=== PATIENT | female | born 1980 | race Caucasian/White ===

== ENCOUNTER 2016-07-03 16:32 | Emergency (ER) | payer OTHER, MEDICAID, SELFPAY ==
[~2016-07-03 16:32] MED LIST: ALEVE220 M3 PO; BACTRIM DS TAB1 EAC2 PO; COUMADIN5 M2 PO; COUMADIN7.5 M1 PO; IBUPROFEN200 M2 PO; KEFLEX500 M4 PO; KETOROLAC TROME10 MG PO; MEDROL4 M2 PO; NORCO 5-325 TA1 EACH PO; PREDNISONE20 M1 PO; PROVENTIL HFA6.7 G1 IH; PROVENTIL HFA6.7 G1 INH; TRAMADOL HCL50 M2 PO; VIBRAMYCIN100 M1 PO
[2017-01-07] MEDS ORDERED: PROAIR HFA8.5 GM INH (07:31)
== END 2016-07-03 21:23 ==
LOC: EDMED 16:32
DX: R51 Headache (principal); J45.909 Unspecified asthma, uncomplicated; Z79.01 Long term (current) use of anticoagulants
CPT/HCPCS: J0780; J1200; J1885; J7030

== ENCOUNTER 2016-09-11 15:17 | Emergency (ER) | payer OTHER ==
[2016-09-11] MEDS ORDERED: CYCLOBENZAPRINE10 M1 PO (18:37)
[2017-01-07] MEDS ORDERED: PROAIR HFA8.5 GM INH (07:31)
== END 2016-09-11 18:57 ==
LOC: EDMED 15:17
DX: M54.6 Pain in thoracic spine (principal); Z86.718 Personal history of other venous thrombosis and embolism; Z86.711 Personal history of pulmonary embolism; Z79.01 Long term (current) use of anticoagulants; Z88.8 Allergy status to other drugs, medicaments and biological substances; Z88.6 Allergy status to analgesic agent; Z90.49 Acquired absence of other specified parts of digestive tract
CPT/HCPCS: J1885